=== PATIENT | female | born 1955 | race Caucasian/White ===

== ENCOUNTER → 2018-03-11 | Outpatient (CLI) | payer OTHER ==
[2018-03-11 14:53] LABS: BASOPHILS ABSOLUTE AUTO 0.04 K/mm3 (0.00-0.23); BASOPHILS PERCENT AUTO 0 % (0-2); EOSINOPHILS ABSOLUTE AUTO 0.24 K/mm3 (0.00-0.68); EOSINOPHILS PERCENT AUTO 2 % (0-6); Hematocrit 45.4 % (33.0-51.0); Hemoglobin 14.9 g/dL (11.5-16.0); IMMATURE GRAN ABSOLUTE AUTO 0.03 K/mm3 (0.00-0.10); IMMATURE GRAN PERCENT AUTO 0 % (0-1); LYMPHOCYTES ABSOLUTE AUTO 1.37 K/mm3 (0.84-5.20); LYMPHOCYTES PERCENT AUTO 13 % (21-46); MONOCYTES ABSOLUTE AUTO 0.69 K/mm3 (0.16-1.47); MONOCYTES PERCENT AUTO 7 % (4-13); Mean Corpuscular HGB 29.3 pg (26.0-34.0); Mean Corpuscular HGB Conc 32.8 g/dL (31.5-36.5); Mean Corpuscular Volume 89 fL (80-100); Mean Platelet Volume 9.4 fL (9.1-12.4); NEUTROPHILS ABSOLUTE AUTO 7.89 K/mm3 (1.96-9.15); NEUTROPHILS PERCENT AUTO 77 % (41-73); Platelet Count 284 K/mm3 (150-400); RDW Coefficient Variation 13.6 % (11.7-14.2); RDW Standard Deviation 44.3 fL (35.1-46.3); Red Blood Cell Count 5.08 M/mm3 (3.80-5.20); White Blood Cell Count 10.26 K/mm3 (4.00-11.30)
[2018-03-11 15:12] LABS: Bun/Creatinine Ratio 21.6 (12.0-20.0); Calcium, Blood 9.3 mg/dL (8.5-10.1); Creatinine, Blood 0.97 mg/dL (0.40-1.00); Potassium, Blood 4.5 mmol/L (3.5-5.5); Thyroid Stimulating Hormone 4.712 uIU/mL (0.360-4.800)
== END | disposition home or self-care (01) ==
LOC: LAB SHORT 14:48 → LAB EV 14:48
PROVIDERS: Family Medicine
DX: N39.0 Urinary tract infection, site not specified (principal); R73.9 Hyperglycemia, unspecified; R53.83 Other fatigue
CPT/HCPCS: 80048; 83036; 84443; 85025; 87077; 87086; 87186

== ENCOUNTER 2021-06-25 15:42 | Inpatient (IN) | payer OTHER ==
[~2021-06-25] VITALS: Ht 154.9 cm; Wt 129.5 kg
[2021-06-25 21:08] LABS: BASOPHILS ABSOLUTE AUTO 0.02 K/mm3 (0.00-0.23); BASOPHILS PERCENT AUTO 0 % (0-2); EOSINOPHILS PERCENT AUTO 0 % (0-6); Hematocrit 44.9 % (33.0-51.0); Hemoglobin 14.5 g/dL (11.5-16.0); Mean Corpuscular HGB 28.3 pg (26.0-34.0); Mean Corpuscular HGB Conc 32.3 g/dL (31.5-36.5); Mean Corpuscular Volume 88 fL (80-100); Mean Platelet Volume 8.9 fL (9.1-12.4); Platelet Count 212 K/mm3 (150-400); RDW Coefficient Variation 13.9 % (11.7-14.2); RDW Standard Deviation 45.1 fL (35.1-46.3); Red Blood Cell Count 5.13 M/mm3 (3.80-5.20); White Blood Cell Count 4.64 K/mm3 (4.00-11.30)
[2021-06-25 21:09] LABS: IMMATURE GRAN ABSOLUTE AUTO 0.03 K/mm3 (0.00-0.10); IMMATURE GRAN PERCENT AUTO 1 % (0-1); LYMPHOCYTES PERCENT AUTO 17 % (21-46); MONOCYTES ABSOLUTE AUTO 0.58 K/mm3 (0.16-1.47); MONOCYTES PERCENT AUTO 13 % (4-13); NEUTROPHILS ABSOLUTE AUTO 3.21 K/mm3 (1.96-9.15); NEUTROPHILS PERCENT AUTO 69 % (41-73)
[2021-06-25 21:26] LABS: Alanine Aminotransfer (ALT/SGP 114 U/L (12-78); Albumin, Blood 3.1 g/dL (3.4-5.0); Albumin/Globulin Ratio 0.7 (0.8-1.8); Alk Phos 61 U/L (50-136); Anion Gap 5 mmol/L (6-16); Aspartate Aminotrans (AST/SGOT 93 U/L (12-37); Bilirubin, Total 1.1 mg/dL (0.1-1.0); Blood Urea Nitrogen 19 mg/dL (8-24); Bun/Creatinine Ratio 24.8 (12.0-20.0); CO2, Blood 29 mmol/L (21-32); Calcium, Blood 9.1 mg/dL (8.5-10.1); Chloride, Blood 102 mmol/L (98-108); Creatinine, Blood 0.77 mg/dL (0.40-1.00); Globulin, Blood 4.5 g/dL (2.2-4.0); Glomerular Filtration Rate >60 (60-); Glucose, Blood 112 mg/dL (70-99); Potassium, Blood 3.8 mmol/L (3.5-5.5); Sodium, Blood 136 mmol/L (136-145); Total Protein, Blood 7.6 g/dL (6.4-8.2)
--- NOTE | 2021-06-26 18:15 | NUR ---
PT RESTING IN HER CHAIR, EATING DINNER, ALERT AND ORIENTED X4 AND MAKING NO COMPLAINTS. PT CONT. ON 5L O2, SAT 91% AND 92% AND NO ACCUTE CHANGES THROUGH DAY. PT TREATED WITH PRN MEDS FOR HTN AND REMAINS A 1 PERSON ASSIST WITH WALKER AND BATHROOM PRIV. BED IN LOW POSITION, NO ALERM USED, AND CALL LIGHT WITHIN REACH. STAFF WILL CONT. TO MONITOR.
--- NOTE | 2021-06-27 05:53 | NUR ---
VELVET SLEPT WELL. A&OX4 WITH NO COMPLAINTS OF PAIN OR DISCOMFORT THAT WERE NOT RESOLVED WITH MINIMALLY ASSISTED REPOSITIONING. RECEIVED REMDESIVIR AT HS. LUNG SOUNDS WERE DIMINISHED BUT WITHOUT ANY OVERTLY ADVENTITIOUS SOUNDS NOTED. SHE CONTINUES WITH 5 LITERS HIGH FLOW NC TO MAINTAIN SATURATIONS >90 AT REST
--- NOTE | 2021-06-27 10:50 | NUR ---
am sbp 169. rechecked BPAND WAS 134/85. NO HYDRALIZINE GIVEN.
--- NOTE | 2021-06-27 16:09 | NUR ---
RN NOTE: PT O2 SATS 95-97% ON [address] ANTHONY REQUEST, TITRATED O2 DOWN SO O2 SATS WERE BETWEEN 90-92%. PT TOLERATED O2 AT 2.5 LPM AND SATS REMAINED AT 92-93%. PT EDUCATED TO CALL IF SOB OR ANY OTHER CONCERNS. PT REED.
--- NOTE | 2021-06-27 18:23 | NUR ---
SHIFT SUMMARY: PT A/O STANDBY ASSIST TO BR. PT HAS HAD NO P/N/V TODAY. TITRATED O2 TO 2.5 LPM VIA NC. O2 SATS AT 92-93%. PT SOB WITH AMBULATION BUT RECOVERS QUICKLY. MILD COUGH AT THIS TIME. NO FEVER.
--- NOTE | 2021-06-28 06:41 | NUR ---
Loretta had a good rest overnight. Oxygen remained >90% on 1.5 Liters. 2nd dose of Remdesvir given. 10mg hydralazine given for a BP of 179/100 early this morning. otherwise no changes
--- NOTE | 2021-06-28 18:14 | NUR ---
SHIFT SUMMARY: PT A/O X 3 PLEASANT AND COOP. PT O2 SATS MAINTAINING IN LOW 90'S. TITRATED O2 TO 0.5 LPM VIA NC. PT STRONGER WITH ADL'S TODAY, LESS SHAKY. PT HAS MINIMAL SOB WITH ACTIVITY AND RECOVERS QUICKLY. PROGRESSING WELL.
--- NOTE | 2021-06-29 07:59 | NUR ---
NO CHANGES OVERNIGHT. BLAYNE IS JUST WAITING TO BE ABLE TO GO HOME TOMMOROW
--- NOTE | 2021-06-29 18:30 | NUR ---
SHIFT SUMMARY: NO ACUTE EVENTS. REMAINS ON 1 L/MIN NC, SATS 92-94%, HAVING SOME MARTINEZ WITH ACTIVITY BUT RECOVERS QUICKLY. HAD A SHOWER WITH ASSISTANCE TODAY. INDEPENDENT IN ROOM. DENIED PAIN. TOLERATING CARDIAC DIET, GOOD APPETITE. PT LIVES ALONE, WILL BE STAYING WITH HER DAUGHTER AT D/C SINCE SHE FEELS SHE WILL NEED A LITTLE HELP UNTIL FULLY RECOVERED. OCCASIONAL WIRE STRAIGHTENER COUGH.
--- NOTE | 2021-06-30 06:24 | NUR ---
SHIFT SUMMARY PATIENT ALERT AND ORIENTED. HAD NO COMPLAINTS OF PAIN OR SHORTNESS OF BREATH. PATIENT WEANED OFF OXYGEN THIS MORNING. IV PATENT AND FLUSHED. BED IN LOWEST POSITION WITH WHEELS LOCKED. CALL LIGHT WITHIN REACH. REPORT GIVEN TO ONCOMING RN.
[2021-06-30] MEDS ORDERED: LOSA25 PO (14:54)
[2021-06-30] MEDS ORDERED: AMLO5 PO (14:54)
[2021-06-30] MEDS ORDERED: DEXA6 PO (14:55)
[2021-06-30] MEDS ORDERED: HYDCHL25 PO (14:55)
--- NOTE | 2021-06-30 15:46 | NUR ---
PT DISCHARGED TO HOME WITH FAMILY. IV SALINE LOCK REMOVED. CURRENTLY ON ROOM AIR. PATIENT HAS NO PCP, GAVE NEW PATIENT PACKET FOR [facility]. VERBALIZED UNDERSTANDING OF D/C INSTRUCTIONS. OFF UNIT AT 1546 VIA BARIATRIC W/C. NO BELONGINGS LEFT BEHIND IN ROOM.
== END 2021-06-30 13:42 | disposition home or self-care (01) | DRG 177 ==
LOC: ER 15:42 → MEDS 22:43
PROVIDERS: Physician Assistant; ADMIT Family Medicine
PROC: 8E0ZXY6 Isolation (ICD-10-PCS; principal; 2021-06-25)
PROC: 3E0333Z Introduction of Anti-inflammatory into Peripheral Vein, Percutaneous Approach (ICD-10-PCS; 2021-06-25)
PROC: XW033E5 Introduction of Remdesivir Anti-infective into Peripheral Vein, Percutaneous Approach, New Technology Group 5 (ICD-10-PCS; 2021-06-25)
DX: U07.1 COVID-19 (principal); J12.82 Pneumonia due to coronavirus disease 2019; J96.01 Acute respiratory failure with hypoxia; Z68.43 Body mass index [BMI] 50.0-59.9, adult; E66.01 Morbid (severe) obesity due to excess calories; Z98.51 Tubal ligation status; Z88.2 Allergy status to sulfonamides; Z87.891 Personal history of nicotine dependence
CPT/HCPCS: 36415; 80053; 84145; 85025; 86140; 94640; 94664; 94760; 94762; 96374; 99285-25; A9270; J0360; J1100; J1650; J7050

== ENCOUNTER → 2021-06-25 | Outpatient (CLI) | payer OTHER ==
[~2021-06-25] MED LIST: AMLO5 PO; DEXA6 PO; HYDCHL25 PO; LOSA25 PO
[2021-06-28 06:16] LABS: CORONAVIRUS (COVID19) CSH-NRL Positive (Negative)
== END ==
LOC: LAB SHORT 15:57 → LAB 15:57
PROVIDERS: Chiropractor
DX: Z20.822 Contact with and (suspected) exposure to COVID-19 (principal)
CPT/HCPCS: U0003

== ENCOUNTER → 2024-11-25 | Outpatient (CLI) | payer MEDICARE ==
[2024-11-25 14:48] LABS: Stool Occult Bld Immuno 1 Positive (NEGATIVE)
== END ==
LOC: LAB SHORT 10:46 → LAB 10:46
PROVIDERS: Student in an Organized Health Care Education/Training Program
DX: Z12.11 Encounter for screening for malignant neoplasm of colon (principal)
CPT/HCPCS: G0328